=== PATIENT | female | born 1995 | race American Indian/Alaskan Native ===

== ENCOUNTER 2018-09-08 08:31 | Inpatient (IN) | payer MEDICAID ==
[2018-09-08] MEDS ORDERED: BRETHINE IVP PRN (09:36)
[2018-09-08] MEDS ORDERED: STADOL IV PRN (09:36)
[2018-09-08] MEDS ORDERED: BRETHINE SUB-Q PRN (09:36)
[2018-09-08] MEDS ORDERED: SUBLIMAZE IV PRN (09:36)
[2018-09-08] MEDS ORDERED: PITOCin/NS 30 UNIT/500ML 30 UNITS/500 ML BAG IV SCH ×2 (10:00)
[2018-09-08] MEDS ORDERED: PITOCin/NS 20 UNIT/1000ML DRIP 20 UNITS/1,000 ML BAG IV SCH (10:00)
[2018-09-08 10:14] LABS: Hematocrit 29.2 % (30.3-42.9); Hemoglobin 9.3 gm/dl (10.1-14.3); Mean Corpuscular HGB Conc 32 % (30-34); Platelet Count 277 K/mm3 (140-440); Red Blood Count 4.18 M/mm3 (3.65-5.03); Red Cell Distribution Width 18.5 % (13.2-15.2)
[2018-09-08 10:15] LABS: Mean Corpuscular Volume 70 fl (79-97)
[2018-09-08] MEDS: LACTATED RINGERS 1,000 ML IV SCH ×2 (10:19→19:16)
[2018-09-08] MEDS ORDERED: XYLOCAINE 2% INFILTRATI ONE (11:00)
--- NOTE | 2018-09-08 13:12 | History and Physical Report ---
History of Present Illness Date of examination: 09/08/18 Date of admission: 09/08/18 08:31 Chief complaint: Scheduled IOL post dates History of present illness: Menstrual History Regularity: regular Menses every: 28 days Duration: 7 LMP: 11/25/2017 LMP reliability: definite LMP character: normal test type: urine test Date: 01/30/2018 BC at conception: none Planned ? no EDC Calculations LMP: 09/01/2018 EDC Confirmation: 09/01/2018 Gestational Age: 9 3/7 weeks Past History : 1 Past Medical History: Negative Past Medical History Past Surgical History: Negative Past Surgical History Social History: Patient is single Smoking History: Patient has never smoked. 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 Infection History Hx of STD: none HIV Risk Eval: no Varicella/Chicken Pox Status: Unknown TB Risk: no Genetic History Congenital Heart Defect: Mom: no Dad: no Cliff Disease: Mom: no Dad: no Thalassemia Mom: no Dad: no Neural Tube Defect Mom: no Dad: no Down's Syndrome Mom: yes Dad: no Comments: Maternal aunt Richi-Sachs Mom: no Dad: no Sickle Cell Disease/Trait Mom: no Dad: no Hemophilia Mom: no Dad: no Muscular Dystrophy Mom: no Dad: no Cystic Fibrosis Mom: no Dad: no [place] Chorea Mom: no Dad: no Mental Retardation Mom: no Dad: no Fragile X Mom: no Dad: no Other Genetic/Chromosomal Disorder Mom: no Dad: no Child w/other defect Mom: no Dad: no Enviromental Exposures Enviromental Exposures Reviewed Xray Exposure: no Medication, drug, or alcohol use since LMP: no Chemical/Other Exposure: no Exposure to Cat Liter: no Hx of Parvovirus (Fifth Disease): no 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 Medications (reviewed today): None Current Allergies (reviewed today): No known allergies Past History Past Medical History: other (see HPI) Past Surgical History: other (see HPI) 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) Family/Genetic History: other (see HPI) Social history: other (see HPI) - Obstetrical History Expected Date of Delivery: 09/01/18 Actual Gestation: 41 Week(s) 0 Day(s) : 1 Para: 0 Medications and Allergies Allergies Allergy/AdvReac Type Severity Reaction Status Date / Time No Known Allergies Allergy Unverified 09/08/18 09:36 Active Meds: Active Medications Butorphanol Tartrate (Stadol) 2 mg IV Q2H PRN PRN Reason: Pain , Severe (7-10) Ephedrine Sulfate (Ephedrine Sulfate) 10 mg IV Q2M PRN PRN Reason: Hypotension Fentanyl (Sublimaze) 100 mcg IV Q2H PRN PRN Reason: Labor Pain Oxytocin/Sodium Chloride (Pitocin/Ns 20 Unit/1000ml Drip) 20 units in 1,000 mls @ 125 mls/hr IV DIRECT TERRI Oxytocin/Sodium Chloride (Pitocin/Ns 30 Unit/500ml) 30 units in 500 mls @ 1 mls/hr IV TITR TERRI; Protocol Oxytocin/Sodium Chloride (Pitocin/Ns 30 Unit/500ml) 30 units in 500 mls @ 4 mls/hr IV TITR TERRI; Protocol Last Titration: 09/08/18 10:45 Dose: 8 mls/hr, 8 mls/hr Documented by: Lactated Ringer's (Lactated Ringers) 1,000 mls @ 125 mls/hr IV DIRECT TERRI Last Admin: 09/08/18 10:19 Dose: 125 mls/hr Documented by: Mineral Oil (Mineral Oil) 30 ml PO QHS PRN PRN Reason: Constipation Terbutaline Sulfate (Brethine) 0.25 mg SUB-Q ONCE PRN PRN Reason: Hyperstimulation/Hypertonicity Stop: 09/08/18 20:00 Terbutaline Sulfate (Brethine) 0.25 mg IVP ONCE PRN PRN Reason: Hyperstimulation/Hypertonicity Stop: 09/08/18 20:00 Review of Systems All systems: negative Genitourinary: contractions - Vital Signs Vital signs: Vital Signs Pulse BP 96 H 128/80 09/08/18 08:56 09/08/18 08:56 Temp Pulse Resp BP Pulse Ox 98.3 F 90 16 126/72 98 09/08/18 09:52 09/08/18 13:07 09/08/18 09:52 09/08/18 10:54 09/08/18 13:07 - Physical Exam Breasts: Positive: normal Cardiovascular: Regular rate, Normal S1, Normal S2 Lungs: Positive: Clear to auscultation, Normal air movement Abdomen: Positive: normal appearance, soft, normal bowel sounds. Negative: distention, tenderness Genitourinary (Female): Positive: normal external genitalia, normal perenium Vulva: both: normal Vagina: Positive: normal moisture. Negative: discharge Cervix: Negative: lesion, discharge Uterus: Positive: normal size, normal contour Adnexa: both: normal Anus/Rectum: Positive: normal perianal skin. Negative: rectal mass, hemorrhoids Extremities: Deep Tendon Reflex Grade: Normal +2 - Obstetrical FHR: auscultation normal Uterine Contraction Monitor Mode: External Cervical Dilatation: 2 Cervical Effacement Percentage: 60 station: -2 Uterine Contraction Pattern: Irregular Uterine Tone Measurement Phase: Contraction Uterine Contraction Intensity: Mild Results Result Diagrams: 09/08/18 09:15 Abnormal lab results 09/08/18 Range/Units 09:15 Hgb 9.3 L (10.1-14.3) gm/dl Hct 29.2 L (30.3-42.9) % MCV 70 L (79-97) fl MCH 22 L (28-32) pg RDW 18.5 H (13.2-15.2) % All other labs normal. Assessment and Plan 23 y.o. IUP at 41w0d admitted for scheduled IOL for postdates. Routine admission orders and pitocin order in EMR. GBS is negative. DWP plans for induction, possibility of cervdil this evening if no significant cervical change is made today. Discussed with patient occasional late decelerations noted in heart tracing earlier, now corrected and category 1. Patient understands causes and interventions to correct late decelerations, and possibility of need for section if signs of distress continue. Questions encouraged and answered. Patient reports being comfortable at this time. She reports feeling occasional contractions, but they are not painful. Patient desires epidural for pain management. SVE is 2/60/-2, vertex, IBOW. Will continue to monitor, Anticipate .
--- NOTE | 2018-09-08 18:57 | Progress Note ---
Assessment and Plan - Patient Problems (1) 41 weeks gestation of Current Visit: Yes Status: Acute Plan to address problem: -cont IOL with pitocin now in active labor -prepare for epidural -plan for AROM with epidural placement with placement of internal monitors -currently anticipate vaginal delivery. Subjective - Subjective Date of service: 09/08/18 Principal diagnosis: IUP at 41 weeks here for post dates iol Interval history: Pt c/o pain. examined and cx 70/-1 with some bloody show. Will obtain epidural at this time as pt desires it and proceed with IOL. Pitocin currently at 12mu. Pt did have variable decels that seemed to be positional. I d/w need for operative delivery if tracing remains nonreassuring. Currently tracing is without decelerations. Questions regarding labor augmentation such as AROM which I d/w pt were addressed and answered to pt and her mother. Patient reports: vaginal bleeding, movement normal, contractions, no loss of fluid Objective - Vital Signs Vital Signs: Vital Signs - 12hr 09/08/18 09/08/18 09/08/18 08:56 09:00 09:52 Temperature 98.3 F Pulse Rate 96 H 107 H Respiratory 16 Rate Blood Pressure 128/80 110/68 O2 Sat by Pulse Oximetry 09/08/18 09/08/18 09/08/18 10:54 12:57 13:02 Temperature Pulse Rate 71 81 86 Respiratory Rate Blood Pressure 126/72 O2 Sat by Pulse 100 99 Oximetry 09/08/18 09/08/18 09/08/18 13:07 13:12 13:22 Temperature Pulse Rate 90 88 95 H Respiratory Rate Blood Pressure O2 Sat by Pulse 98 100 98 Oximetry 09/08/18 09/08/18 09/08/18 13:27 13:32 13:37 Temperature Pulse Rate 87 78 79 Respiratory Rate Blood Pressure O2 Sat by Pulse 96 96 96 Oximetry 09/08/18 09/08/18 09/08/18 13:42 13:47 13:52 Temperature Pulse Rate 81 77 83 Respiratory Rate Blood Pressure O2 Sat by Pulse 97 97 98 Oximetry 09/08/18 09/08/18 09/08/18 13:57 14:02 14:07 Temperature Pulse Rate 81 75 74 Respiratory Rate Blood Pressure O2 Sat by Pulse 98 99 99 Oximetry 09/08/18 09/08/18 09/08/18 14:09 14:12 14:17 Temperature Pulse Rate 93 H 75 72 Respiratory Rate Blood Pressure O2 Sat by Pulse 84 98 98 Oximetry 09/08/18 09/08/18 09/08/18 14:22 14:27 14:32 Temperature Pulse Rate 69 75 70 Respiratory Rate Blood Pressure O2 Sat by Pulse 98 99 98 Oximetry 09/08/18 09/08/18 09/08/18 14:34 14:37 14:42 Temperature Pulse Rate 76 77 81 Respiratory Rate Blood Pressure 110/59 O2 Sat by Pulse 98 98 Oximetry 09/08/18 09/08/18 09/08/18 14:47 14:59 15:01 Temperature Pulse Rate 81 78 76 Respiratory Rate Blood Pressure 127/74 O2 Sat by Pulse 98 100 Oximetry 09/08/18 09/08/18 09/08/18 15:04 15:09 15:14 Temperature Pulse Rate 86 83 77 Respiratory Rate Blood Pressure O2 Sat by Pulse 100 100 100 Oximetry 09/08/18 09/08/18 09/08/18 15:19 15:24 15:29 Temperature Pulse Rate 84 100 H 93 H Respiratory Rate Blood Pressure O2 Sat by Pulse 100 100 100 Oximetry 09/08/18 09/08/18 09/08/18 15:32 15:34 15:39 Temperature Pulse Rate 88 98 H 82 Respiratory Rate Blood Pressure 113/76 O2 Sat by Pulse 100 100 Oximetry 09/08/18 09/08/18 09/08/18 15:44 16:00 16:06 Temperature 97.9 F Pulse Rate 86 90 Respiratory Rate Blood Pressure O2 Sat by Pulse 100 100 Oximetry 09/08/18 09/08/18 09/08/18 16:07 16:12 16:17 Temperature Pulse Rate 69 81 94 H Respiratory Rate Blood Pressure 149/63 O2 Sat by Pulse 89 98 100 Oximetry 09/08/18 09/08/18 09/08/18 16:22 16:27 16:33 Temperature Pulse Rate 79 104 H 84 Respiratory Rate Blood Pressure 136/76 O2 Sat by Pulse 98 100 100 Oximetry 09/08/18 09/08/18 09/08/18 16:35 16:38 16:43 Temperature Pulse Rate 91 H 82 Respiratory 18 Rate Blood Pressure O2 Sat by Pulse 99 97 Oximetry 09/08/18 09/08/18 09/08/18 16:48 16:53 16:58 Temperature Pulse Rate 90 78 79 Respiratory Rate Blood Pressure O2 Sat by Pulse 96 97 96 Oximetry 09/08/18 09/08/18 09/08/18 17:03 17:08 17:13 Temperature Pulse Rate 94 H 85 81 Respiratory Rate Blood Pressure 122/83 O2 Sat by Pulse 96 96 96 Oximetry 09/08/18 09/08/18 09/08/18 17:18 17:23 17:28 Temperature Pulse Rate 79 84 82 Respiratory Rate Blood Pressure O2 Sat by Pulse 97 96 96 Oximetry 09/08/18 09/08/18 09/08/18 17:32 17:33 17:38 Temperature Pulse Rate 88 90 83 Respiratory Rate Blood Pressure 132/63 O2 Sat by Pulse 98 100 Oximetry 09/08/18 09/08/18 09/08/18 17:43 17:48 17:53 Temperature Pulse Rate 78 84 84 Respiratory Rate Blood Pressure O2 Sat by Pulse 100 97 98 Oximetry 09/08/18 09/08/18 09/08/18 17:58 18:02 18:03 Temperature Pulse Rate 80 81 89 Respiratory Rate Blood Pressure 135/70 O2 Sat by Pulse 100 99 Oximetry 09/08/18 09/08/18 09/08/18 18:08 18:16 18:32 Temperature Pulse Rate 79 87 79 Respiratory Rate Blood Pressure 132/62 O2 Sat by Pulse 100 100 100 Oximetry 09/08/18 09/08/18 09/08/18 18:37 18:42 18:47 Temperature Pulse Rate 81 85 85 Respiratory Rate Blood Pressure O2 Sat by Pulse 100 100 100 Oximetry - Exam FHR: category 2 (resolves with postion change) Uterine Contraction Monitor Mode: Palpation Cervical Dilatation: 4.5 Cervical Effacement Percentage: 70 station: -1 Uterine Contraction Pattern: Regular Uterine Tone Measurement Phase: Resting Uterine Contraction Intensity: Moderate Extremities: edema (1+ edema) - Labs Labs: Abnormal Labs 09/08/18 09:15 Hgb 9.3 L Hct 29.2 L MCV 70 L MCH 22 L RDW 18.5 H Laboratory Results - last 24 hr 09/08/18 09/08/18 09/08/18 09:15 09:15 09:15 WBC 9.2 RBC 4.18 Hgb 9.3 L Hct 29.2 L MCV 70 L MCH 22 L MCHC 32 RDW 18.5 H Plt Count 277 RPR Nonreactive Blood Type O POSITIVE Antibody Screen Negative
--- NOTE | 2018-09-08 19:25 | Anesthesia Consultation ---
Anesthesia Consult and Med Hx Date of service: 09/08/18 - Airway Anesthetic Teeth Evaluation: Good ROM Head & Neck: Adequate Mental/Hyoid Distance: Adequate Mallampati Class: Class II - Pulmonary Exam CTA: Yes - Cardiac Exam Cardiac Exam: RRR - Pre-Operative Health Status ASA Pre-Surgery Classification: ASA2 Proposed Anesthetic Plan: Epidural - Pulmonary Hx Asthma: No COPD: No Hx Pneumonia: No - Cardiovascular System Hx Hypertension: No - Central Nervous System Hx Seizures: No Hx Psychiatric Problems: No - Endocrine Hx Renal Disease: No Hx End Stage Renal Disease: No Hx Hypothyroidism: No Hx Hyperthyroidism: No - Hematic Hx Anemia: No Hx Sickle Cell Disease: No - Other Systems Hx Alcohol Use: No
[2018-09-08] MEDS ORDERED: NARCAN 2 MG/2 ML IV PRN (19:26)
[2018-09-08] MEDS ORDERED: MARCAINE 0.25% INFILTRATI ONE (19:32)
--- NOTE | 2018-09-08 19:59 | Progress Note ---
Assessment and Plan - Patient Problems (1) 41 weeks gestation of Current Visit: Yes Status: Acute Subjective - Subjective Principal diagnosis: IUP at 41 weeks here for post dates iol Interval history: Pt c/o pain. examined and cx /-1 with some bloody show. Will obtain epidural at this time as pt desires it and proceed with IOL. Pitocin currently at 12mu. Pt did have variable decels that seemed to be positional. I d/w need for operative delivery if tracing remains nonreassuring. Currently tracing is without decelerations. Questions regarding labor augmentation such as AROM which I d/w pt were addressed and answered to pt and her mother. Patient reports: vaginal bleeding, movement normal, contractions, no loss of fluid Objective - Vital Signs Vital Signs: Vital Signs - 12hr 09/08/18 09/08/18 09/08/18 08:56 09:00 09:52 Temperature 98.3 F Pulse Rate 96 H 107 H Respiratory 16 Rate Blood Pressure 128/80 110/68 O2 Sat by Pulse Oximetry 09/08/18 09/08/18 09/08/18 10:54 12:57 13:02 Temperature Pulse Rate 71 81 86 Respiratory Rate Blood Pressure 126/72 O2 Sat by Pulse 100 99 Oximetry 09/08/18 09/08/18 09/08/18 13:07 13:12 13:22 Temperature Pulse Rate 90 88 95 H Respiratory Rate Blood Pressure O2 Sat by Pulse 98 100 98 Oximetry 09/08/18 09/08/18 09/08/18 13:27 13:32 13:37 Temperature Pulse Rate 87 78 79 Respiratory Rate Blood Pressure O2 Sat by Pulse 96 96 96 Oximetry 09/08/18 09/08/18 09/08/18 13:42 13:47 13:52 Temperature Pulse Rate 81 77 83 Respiratory Rate Blood Pressure O2 Sat by Pulse 97 97 98 Oximetry 09/08/18 09/08/18 09/08/18 13:57 14:02 14:07 Temperature Pulse Rate 81 75 74 Respiratory Rate Blood Pressure O2 Sat by Pulse 98 99 99 Oximetry 09/08/18 09/08/18 09/08/18 14:09 14:12 14:17 Temperature Pulse Rate 93 H 75 72 Respiratory Rate Blood Pressure O2 Sat by Pulse 84 98 98 Oximetry 09/08/18 09/08/18 09/08/18 14:22 14:27 14:32 Temperature Pulse Rate 69 75 70 Respiratory Rate Blood Pressure O2 Sat by Pulse 98 99 98 Oximetry 09/08/18 09/08/18 09/08/18 14:34 14:37 14:42 Temperature Pulse Rate 76 77 81 Respiratory Rate Blood Pressure 110/59 O2 Sat by Pulse 98 98 Oximetry 09/08/18 09/08/18 09/08/18 14:47 14:59 15:01 Temperature Pulse Rate 81 78 76 Respiratory Rate Blood Pressure 127/74 O2 Sat by Pulse 98 100 Oximetry 09/08/18 09/08/18 09/08/18 15:04 15:09 15:14 Temperature Pulse Rate 86 83 77 Respiratory Rate Blood Pressure O2 Sat by Pulse 100 100 100 Oximetry 09/08/18 09/08/18 09/08/18 15:19 15:24 15:29 Temperature Pulse Rate 84 100 H 93 H Respiratory Rate Blood Pressure O2 Sat by Pulse 100 100 100 Oximetry 09/08/18 09/08/18 09/08/18 15:32 15:34 15:39 Temperature Pulse Rate 88 98 H 82 Respiratory Rate Blood Pressure 113/76 O2 Sat by Pulse 100 100 Oximetry 09/08/18 09/08/18 09/08/18 15:44 16:00 16:06 Temperature 97.9 F Pulse Rate 86 90 Respiratory Rate Blood Pressure O2 Sat by Pulse 100 100 Oximetry 09/08/18 09/08/18 09/08/18 16:07 16:12 16:17 Temperature Pulse Rate 69 81 94 H Respiratory Rate Blood Pressure 149/63 O2 Sat by Pulse 89 98 100 Oximetry 09/08/18 09/08/18 09/08/18 16:22 16:27 16:33 Temperature Pulse Rate 79 104 H 84 Respiratory Rate Blood Pressure 136/76 O2 Sat by Pulse 98 100 100 Oximetry 09/08/18 09/08/18 09/08/18 16:35 16:38 16:43 Temperature Pulse Rate 91 H 82 Respiratory 18 Rate Blood Pressure O2 Sat by Pulse 99 97 Oximetry 09/08/18 09/08/18 09/08/18 16:48 16:53 16:58 Temperature Pulse Rate 90 78 79 Respiratory Rate Blood Pressure O2 Sat by Pulse 96 97 96 Oximetry 09/08/18 09/08/18 09/08/18 17:03 17:08 17:13 Temperature Pulse Rate 94 H 85 81 Respiratory Rate Blood Pressure 122/83 O2 Sat by Pulse 96 96 96 Oximetry 09/08/18 09/08/18 09/08/18 17:18 17:23 17:28 Temperature Pulse Rate 79 84 82 Respiratory Rate Blood Pressure O2 Sat by Pulse 97 96 96 Oximetry 09/08/18 09/08/18 09/08/18 17:32 17:33 17:38 Temperature Pulse Rate 88 90 83 Respiratory Rate Blood Pressure 132/63 O2 Sat by Pulse 98 100 Oximetry 09/08/18 09/08/18 09/08/18 17:43 17:48 17:53 Temperature Pulse Rate 78 84 84 Respiratory Rate Blood Pressure O2 Sat by Pulse 100 97 98 Oximetry 09/08/18 09/08/18 09/08/18 17:58 18:02 18:03 Temperature Pulse Rate 80 81 89 Respiratory Rate Blood Pressure 135/70 O2 Sat by Pulse 100 99 Oximetry 09/08/18 09/08/18 09/08/18 18:08 18:16 18:32 Temperature Pulse Rate 79 87 79 Respiratory Rate Blood Pressure 132/62 O2 Sat by Pulse 100 100 100 Oximetry 09/08/18 09/08/18 09/08/18 18:37 18:42 18:47 Temperature Pulse Rate 81 85 85 Respiratory Rate Blood Pressure O2 Sat by Pulse 100 100 100 Oximetry 09/08/18 09/08/18 09/08/18 18:52 18:57 19:02 Temperature Pulse Rate 80 83 Respiratory Rate Blood Pressure O2 Sat by Pulse 100 100 90 Oximetry 09/08/18 09/08/18 09/08/18 19:03 19:07 19:09 Temperature Pulse Rate 77 80 86 Respiratory Rate Blood Pressure 139/67 O2 Sat by Pulse 88 100 85 Oximetry 09/08/18 09/08/18 09/08/18 19:23 19:28 19:33 Temperature Pulse Rate 84 81 78 Respiratory Rate Blood Pressure 155/78 O2 Sat by Pulse 98 97 93 Oximetry 09/08/18 09/08/18 09/08/18 19:38 19:41 19:43 Temperature Pulse Rate 88 72 91 H Respiratory Rate Blood Pressure O2 Sat by Pulse 97 81 L 99 Oximetry 09/08/18 09/08/18 09/08/18 19:47 19:48 19:49 Temperature Pulse Rate 91 H 82 82 Respiratory Rate Blood Pressure 143/68 143/68 O2 Sat by Pulse 100 Oximetry 09/08/18 09/08/18 09/08/18 19:51 19:53 19:54 Temperature Pulse Rate 96 H 85 85 Respiratory Rate Blood Pressure 143/72 O2 Sat by Pulse 87 78 L Oximetry 09/08/18 19:55 Temperature Pulse Rate 77 Respiratory Rate Blood Pressure 126/72 O2 Sat by Pulse Oximetry - Exam Cervical Dilatation: 4.5 Cervical Effacement Percentage: 70 station: -1 - Labs Labs: Abnormal Labs 09/08/18 09:15 Hgb 9.3 L Hct 29.2 L MCV 70 L MCH 22 L RDW 18.5 H Laboratory Results - last 24 hr 09/08/18 09/08/18 09/08/18 09:15 09:15 09:15 WBC 9.2 RBC 4.18 Hgb 9.3 L Hct 29.2 L MCV 70 L MCH 22 L MCHC 32 RDW 18.5 H Plt Count 277 RPR Nonreactive Blood Type O POSITIVE Antibody Screen Negative
[2018-09-08] MEDS ORDERED: fentaNYL-BUPIV 2 MCG/ML-0.125% 200 MCG/100 ML BAG EPIDURAL SCH (20:00)
--- NOTE | 2018-09-08 20:47 | Progress Note ---
Assessment and Plan - Patient Problems (1) 41 weeks gestation of Current Visit: Yes Status: Acute Plan to address problem: S/p pitocin IOL now in active labor with pitocin now at 12mu. -closely monitor -still has late decels that correct with position change. Will add O2 at this time also Subjective - Subjective Date of service: 09/08/18 Principal diagnosis: IUP at 41 weeks here for post dates iol Interval history: Pt s/p epidural and is comfortable. AROM done with clear fluid noted. ISE/IUPC placed at this time w/o difficulty. Currently with regular contractions. Consent given for placement of the devices. Pt tolerated the exam well. Patient reports: vaginal bleeding, movement normal, contractions, no loss of fluid Objective - Vital Signs Vital Signs: Vital Signs - 12hr 09/08/18 09/08/18 09/08/18 08:56 09:00 09:52 Temperature 98.3 F Pulse Rate 96 H 107 H Respiratory 16 Rate Blood Pressure 128/80 110/68 O2 Sat by Pulse Oximetry 09/08/18 09/08/18 09/08/18 10:54 12:57 13:02 Temperature Pulse Rate 71 81 86 Respiratory Rate Blood Pressure 126/72 O2 Sat by Pulse 100 99 Oximetry 09/08/18 09/08/18 09/08/18 13:07 13:12 13:22 Temperature Pulse Rate 90 88 95 H Respiratory Rate Blood Pressure O2 Sat by Pulse 98 100 98 Oximetry 09/08/18 09/08/18 09/08/18 13:27 13:32 13:37 Temperature Pulse Rate 87 78 79 Respiratory Rate Blood Pressure O2 Sat by Pulse 96 96 96 Oximetry 09/08/18 09/08/18 09/08/18 13:42 13:47 13:52 Temperature Pulse Rate 81 77 83 Respiratory Rate Blood Pressure O2 Sat by Pulse 97 97 98 Oximetry 09/08/18 09/08/18 09/08/18 13:57 14:02 14:07 Temperature Pulse Rate 81 75 74 Respiratory Rate Blood Pressure O2 Sat by Pulse 98 99 99 Oximetry 09/08/18 09/08/18 09/08/18 14:09 14:12 14:17 Temperature Pulse Rate 93 H 75 72 Respiratory Rate Blood Pressure O2 Sat by Pulse 84 98 98 Oximetry 09/08/18 09/08/18 09/08/18 14:22 14:27 14:32 Temperature Pulse Rate 69 75 70 Respiratory Rate Blood Pressure O2 Sat by Pulse 98 99 98 Oximetry 09/08/18 09/08/18 09/08/18 14:34 14:37 14:42 Temperature Pulse Rate 76 77 81 Respiratory Rate Blood Pressure 110/59 O2 Sat by Pulse 98 98 Oximetry 09/08/18 09/08/18 09/08/18 14:47 14:59 15:01 Temperature Pulse Rate 81 78 76 Respiratory Rate Blood Pressure 127/74 O2 Sat by Pulse 98 100 Oximetry 09/08/18 09/08/18 09/08/18 15:04 15:09 15:14 Temperature Pulse Rate 86 83 77 Respiratory Rate Blood Pressure O2 Sat by Pulse 100 100 100 Oximetry 09/08/18 09/08/18 09/08/18 15:19 15:24 15:29 Temperature Pulse Rate 84 100 H 93 H Respiratory Rate Blood Pressure O2 Sat by Pulse 100 100 100 Oximetry 09/08/18 09/08/18 09/08/18 15:32 15:34 15:39 Temperature Pulse Rate 88 98 H 82 Respiratory Rate Blood Pressure 113/76 O2 Sat by Pulse 100 100 Oximetry 09/08/18 09/08/18 09/08/18 15:44 16:00 16:06 Temperature 97.9 F Pulse Rate 86 90 Respiratory Rate Blood Pressure O2 Sat by Pulse 100 100 Oximetry 09/08/18 09/08/18 09/08/18 16:07 16:12 16:17 Temperature Pulse Rate 69 81 94 H Respiratory Rate Blood Pressure 149/63 O2 Sat by Pulse 89 98 100 Oximetry 09/08/18 09/08/18 09/08/18 16:22 16:27 16:33 Temperature Pulse Rate 79 104 H 84 Respiratory Rate Blood Pressure 136/76 O2 Sat by Pulse 98 100 100 Oximetry 09/08/18 09/08/18 09/08/18 16:35 16:38 16:43 Temperature Pulse Rate 91 H 82 Respiratory 18 Rate Blood Pressure O2 Sat by Pulse 99 97 Oximetry 09/08/18 09/08/18 09/08/18 16:48 16:53 16:58 Temperature Pulse Rate 90 78 79 Respiratory Rate Blood Pressure O2 Sat by Pulse 96 97 96 Oximetry 09/08/18 09/08/18 09/08/18 17:03 17:08 17:13 Temperature Pulse Rate 94 H 85 81 Respiratory Rate Blood Pressure 122/83 O2 Sat by Pulse 96 96 96 Oximetry 09/08/18 09/08/18 09/08/18 17:18 17:23 17:28 Temperature Pulse Rate 79 84 82 Respiratory Rate Blood Pressure O2 Sat by Pulse 97 96 96 Oximetry 09/08/18 09/08/18 09/08/18 17:32 17:33 17:38 Temperature Pulse Rate 88 90 83 Respiratory Rate Blood Pressure 132/63 O2 Sat by Pulse 98 100 Oximetry 09/08/18 09/08/18 09/08/18 17:43 17:48 17:53 Temperature Pulse Rate 78 84 84 Respiratory Rate Blood Pressure O2 Sat by Pulse 100 97 98 Oximetry 09/08/18 09/08/18 09/08/18 17:58 18:02 18:03 Temperature Pulse Rate 80 81 89 Respiratory Rate Blood Pressure 135/70 O2 Sat by Pulse 100 99 Oximetry 09/08/18 09/08/18 09/08/18 18:08 18:16 18:32 Temperature Pulse Rate 79 87 79 Respiratory Rate Blood Pressure 132/62 O2 Sat by Pulse 100 100 100 Oximetry 09/08/18 09/08/18 09/08/18 18:37 18:42 18:47 Temperature Pulse Rate 81 85 85 Respiratory Rate Blood Pressure O2 Sat by Pulse 100 100 100 Oximetry 09/08/18 09/08/18 09/08/18 18:52 18:57 19:02 Temperature Pulse Rate 80 83 Respiratory Rate Blood Pressure O2 Sat by Pulse 100 100 90 Oximetry 09/08/18 09/08/18 09/08/18 19:03 19:07 19:09 Temperature Pulse Rate 77 80 86 Respiratory Rate Blood Pressure 139/67 O2 Sat by Pulse 88 100 85 Oximetry 09/08/18 09/08/18 09/08/18 19:23 19:28 19:33 Temperature Pulse Rate 84 81 78 Respiratory Rate Blood Pressure 155/78 O2 Sat by Pulse 98 97 93 Oximetry 09/08/18 09/08/18 09/08/18 19:38 19:41 19:43 Temperature Pulse Rate 88 72 91 H Respiratory Rate Blood Pressure O2 Sat by Pulse 97 81 L 99 Oximetry 09/08/18 09/08/18 09/08/18 19:47 19:48 19:49 Temperature Pulse Rate 91 H 82 82 Respiratory Rate Blood Pressure 143/68 143/68 O2 Sat by Pulse 100 Oximetry 09/08/18 09/08/18 09/08/18 19:51 19:53 19:54 Temperature Pulse Rate 96 H 85 85 Respiratory Rate Blood Pressure 143/72 O2 Sat by Pulse 87 78 L Oximetry 09/08/18 09/08/18 09/08/18 19:55 19:57 19:58 Temperature Pulse Rate 77 77 86 Respiratory Rate Blood Pressure 126/72 129/65 O2 Sat by Pulse 70 L Oximetry 09/08/18 09/08/18 09/08/18 19:59 20:01 20:03 Temperature Pulse Rate 90 85 86 Respiratory Rate Blood Pressure 126/57 133/63 136/65 O2 Sat by Pulse 99 Oximetry 09/08/18 09/08/18 09/08/18 20:05 20:07 20:08 Temperature Pulse Rate 81 82 97 H Respiratory Rate Blood Pressure 135/64 134/61 O2 Sat by Pulse 100 Oximetry 09/08/18 09/08/18 09/08/18 20:09 20:11 20:13 Temperature Pulse Rate 86 88 93 H Respiratory Rate Blood Pressure 135/62 142/65 141/63 O2 Sat by Pulse 97 Oximetry 09/08/18 09/08/18 09/08/18 20:15 20:17 20:18 Temperature Pulse Rate 92 H 89 102 H Respiratory Rate Blood Pressure 146/65 149/65 O2 Sat by Pulse 99 Oximetry 09/08/18 09/08/18 09/08/18 20:19 20:21 20:23 Temperature Pulse Rate 84 81 96 H Respiratory Rate Blood Pressure 148/66 149/57 148/65 O2 Sat by Pulse 90 Oximetry 09/08/18 09/08/18 09/08/18 20:25 20:27 20:28 Temperature Pulse Rate 87 78 83 Respiratory Rate Blood Pressure 151/67 141/63 O2 Sat by Pulse 98 Oximetry 09/08/18 09/08/18 09/08/18 20:29 20:31 20:33 Temperature Pulse Rate 73 89 86 Respiratory Rate Blood Pressure 144/63 142/69 O2 Sat by Pulse 79 L Oximetry 09/08/18 09/08/18 09/08/18 20:34 20:35 20:37 Temperature Pulse Rate 77 94 H 91 H Respiratory Rate Blood Pressure 145/64 118/63 121/63 O2 Sat by Pulse Oximetry 09/08/18 09/08/18 09/08/18 20:38 20:39 20:42 Temperature Pulse Rate 99 H 105 H 91 H Respiratory Rate Blood Pressure 123/65 147/63 O2 Sat by Pulse 100 Oximetry 09/08/18 20:43 Temperature Pulse Rate 98 H Respiratory Rate Blood Pressure 137/62 O2 Sat by Pulse Oximetry - Exam FHR: category 2 Cervical Dilatation: 5 Cervical Effacement Percentage: 80 station: 0 Uterine Contraction Pattern: Irregular Uterine Tone Measurement Phase: Resting Uterine Contraction Intensity: Moderate Deep Tendon Reflex Grade: Normal +2 - Labs Labs: Abnormal Labs 09/08/18 09:15 Hgb 9.3 L Hct 29.2 L MCV 70 L MCH 22 L RDW 18.5 H Laboratory Results - last 24 hr 09/08/18 09/08/18 09/08/18 09:15 09:15 09:15 WBC 9.2 RBC 4.18 Hgb 9.3 L Hct 29.2 L MCV 70 L MCH 22 L MCHC 32 RDW 18.5 H Plt Count 277 RPR Nonreactive Blood Type O POSITIVE Antibody Screen Negative
[2018-09-08] MEDS ORDERED: MINERAL OIL PO PRN (22:00)
--- NOTE | 2018-09-08 23:06 | Progress Note ---
Assessment and Plan - Patient Problems (1) 41 weeks gestation of Current Visit: Yes Status: Acute Plan to address problem: -labor progressing without pitocin. Will cont to hold at this time. No s/sx of infection -anticipate if remains stable and labor continues to progress. Subjective - Subjective Date of service: 09/08/18 Principal diagnosis: IUP at 41 weeks here for post dates iol Interval history: Pt s/p epidural and is comfortable. Cat I tracing at this time. Pitocin remains off. Pt is still having spontaneous contractions which the baby is tolerating well at this time. Patient reports: vaginal bleeding, movement normal, contractions, no loss of fluid Objective - Vital Signs Vital Signs: Vital Signs - 12hr 09/08/18 09/08/18 09/08/18 12:57 13:02 13:07 Temperature Pulse Rate 81 86 90 Respiratory Rate Blood Pressure O2 Sat by Pulse 100 99 98 Oximetry 09/08/18 09/08/18 09/08/18 13:12 13:22 13:27 Temperature Pulse Rate 88 95 H 87 Respiratory Rate Blood Pressure O2 Sat by Pulse 100 98 96 Oximetry 09/08/18 09/08/18 09/08/18 13:32 13:37 13:42 Temperature Pulse Rate 78 79 81 Respiratory Rate Blood Pressure O2 Sat by Pulse 96 96 97 Oximetry 09/08/18 09/08/18 09/08/18 13:47 13:52 13:57 Temperature Pulse Rate 77 83 81 Respiratory Rate Blood Pressure O2 Sat by Pulse 97 98 98 Oximetry 09/08/18 09/08/18 09/08/18 14:02 14:07 14:09 Temperature Pulse Rate 75 74 93 H Respiratory Rate Blood Pressure O2 Sat by Pulse 99 99 84 Oximetry 09/08/18 09/08/18 09/08/18 14:12 14:17 14:22 Temperature Pulse Rate 75 72 69 Respiratory Rate Blood Pressure O2 Sat by Pulse 98 98 98 Oximetry 09/08/18 09/08/18 09/08/18 14:27 14:32 14:34 Temperature Pulse Rate 75 70 76 Respiratory Rate Blood Pressure 110/59 O2 Sat by Pulse 99 98 Oximetry 09/08/18 09/08/18 09/08/18 14:37 14:42 14:47 Temperature Pulse Rate 77 81 81 Respiratory Rate Blood Pressure O2 Sat by Pulse 98 98 98 Oximetry 09/08/18 09/08/18 09/08/18 14:59 15:01 15:04 Temperature Pulse Rate 78 76 86 Respiratory Rate Blood Pressure 127/74 O2 Sat by Pulse 100 100 Oximetry 09/08/18 09/08/18 09/08/18 15:09 15:14 15:19 Temperature Pulse Rate 83 77 84 Respiratory Rate Blood Pressure O2 Sat by Pulse 100 100 100 Oximetry 09/08/18 09/08/18 09/08/18 15:24 15:29 15:32 Temperature Pulse Rate 100 H 93 H 88 Respiratory Rate Blood Pressure 113/76 O2 Sat by Pulse 100 100 Oximetry 09/08/18 09/08/18 09/08/18 15:34 15:39 15:44 Temperature Pulse Rate 98 H 82 86 Respiratory Rate Blood Pressure O2 Sat by Pulse 100 100 100 Oximetry 09/08/18 09/08/18 09/08/18 16:00 16:06 16:07 Temperature 97.9 F Pulse Rate 90 69 Respiratory Rate Blood Pressure O2 Sat by Pulse 100 89 Oximetry 09/08/18 09/08/18 09/08/18 16:12 16:17 16:22 Temperature Pulse Rate 81 94 H 79 Respiratory Rate Blood Pressure 149/63 O2 Sat by Pulse 98 100 98 Oximetry 09/08/18 09/08/18 09/08/18 16:27 16:33 16:35 Temperature Pulse Rate 104 H 84 Respiratory 18 Rate Blood Pressure 136/76 O2 Sat by Pulse 100 100 Oximetry 09/08/18 09/08/18 09/08/18 16:38 16:43 16:48 Temperature Pulse Rate 91 H 82 90 Respiratory Rate Blood Pressure O2 Sat by Pulse 99 97 96 Oximetry 09/08/18 09/08/18 09/08/18 16:53 16:58 17:03 Temperature Pulse Rate 78 79 94 H Respiratory Rate Blood Pressure 122/83 O2 Sat by Pulse 97 96 96 Oximetry 09/08/18 09/08/18 09/08/18 17:08 17:13 17:18 Temperature Pulse Rate 85 81 79 Respiratory Rate Blood Pressure O2 Sat by Pulse 96 96 97 Oximetry 09/08/18 09/08/18 09/08/18 17:23 17:28 17:32 Temperature Pulse Rate 84 82 88 Respiratory Rate Blood Pressure 132/63 O2 Sat by Pulse 96 96 Oximetry 0609/08/18 09/08/18 17:33 17:38 17:43 Temperature Pulse Rate 90 83 78 Respiratory Rate Blood Pressure O2 Sat by Pulse 98 100 100 Oximetry 09/08/18 09/08/18 09/08/18 17:48 17:53 17:58 Temperature Pulse Rate 84 84 80 Respiratory Rate Blood Pressure O2 Sat by Pulse 97 98 100 Oximetry 09/08/18 09/08/18 09/08/18 18:02 18:03 18:08 Temperature Pulse Rate 81 89 79 Respiratory Rate Blood Pressure 135/70 O2 Sat by Pulse 99 100 Oximetry 09/08/18 09/08/18 09/08/18 18:16 18:32 18:37 Temperature Pulse Rate 87 79 81 Respiratory Rate Blood Pressure 132/62 O2 Sat by Pulse 100 100 100 Oximetry 09/08/18 09/08/18 09/08/18 18:42 18:47 18:52 Temperature Pulse Rate 85 85 80 Respiratory Rate Blood Pressure O2 Sat by Pulse 100 100 100 Oximetry 09/08/18 09/08/18 09/08/18 18:57 19:02 19:03 Temperature Pulse Rate 83 77 Respiratory Rate Blood Pressure 139/67 O2 Sat by Pulse 100 90 88 Oximetry 09/08/18 09/08/18 09/08/18 19:07 19:09 19:23 Temperature Pulse Rate 80 86 84 Respiratory Rate Blood Pressure O2 Sat by Pulse 100 85 98 Oximetry 09/08/18 09/08/18 09/08/18 19:28 19:33 19:38 Temperature Pulse Rate 81 78 88 Respiratory Rate Blood Pressure 155/78 O2 Sat by Pulse 97 93 97 Oximetry 09/08/18 09/08/18 09/08/18 19:41 19:43 19:47 Temperature Pulse Rate 72 91 H 91 H Respiratory Rate Blood Pressure 143/68 O2 Sat by Pulse 81 L 99 Oximetry 09/08/18 09/08/18 09/08/18 19:48 19:49 19:51 Temperature Pulse Rate 82 82 96 H Respiratory Rate Blood Pressure 143/68 143/72 O2 Sat by Pulse 100 Oximetry 09/08/18 09/08/18 09/08/18 19:53 19:54 19:55 Temperature Pulse Rate 85 85 77 Respiratory Rate Blood Pressure 126/72 O2 Sat by Pulse 87 78 L Oximetry 09/08/18 09/08/18 09/08/18 19:57 19:58 19:59 Temperature Pulse Rate 77 86 90 Respiratory Rate Blood Pressure 129/65 126/57 O2 Sat by Pulse 70 L Oximetry 09/08/18 09/08/18 09/08/18 20:01 20:03 20:05 Temperature Pulse Rate 85 86 81 Respiratory Rate Blood Pressure 133/63 136/65 135/64 O2 Sat by Pulse 99 Oximetry 09/08/18 09/08/18 09/08/18 20:07 20:08 20:09 Temperature Pulse Rate 82 97 H 86 Respiratory Rate Blood Pressure 134/61 135/62 O2 Sat by Pulse 100 Oximetry 09/08/18 09/08/18 09/08/18 20:11 20:13 20:15 Temperature Pulse Rate 88 93 H 92 H Respiratory Rate Blood Pressure 142/65 141/63 146/65 O2 Sat by Pulse 97 Oximetry 09/08/18 09/08/18 09/08/18 20:17 20:18 20:19 Temperature Pulse Rate 89 102 H 84 Respiratory Rate Blood Pressure 149/65 148/66 O2 Sat by Pulse 99 Oximetry 09/08/18 09/08/18 09/08/18 20:21 20:23 20:25 Temperature Pulse Rate 81 96 H 87 Respiratory Rate Blood Pressure 149/57 148/65 151/67 O2 Sat by Pulse 90 Oximetry 09/08/18 09/08/18 09/08/18 20:27 20:28 20:29 Temperature Pulse Rate 78 83 73 Respiratory Rate Blood Pressure 141/63 144/63 O2 Sat by Pulse 98 Oximetry 09/08/18 09/08/18 09/08/18 20:31 20:33 20:34 Temperature Pulse Rate 89 86 77 Respiratory Rate Blood Pressure 142/69 145/64 O2 Sat by Pulse 79 L Oximetry 09/08/18 09/08/18 09/08/18 20:35 20:37 20:38 Temperature Pulse Rate 94 H 91 H 99 H Respiratory Rate Blood Pressure 118/63 121/63 O2 Sat by Pulse 100 Oximetry 09/08/18 09/08/18 09/08/18 20:39 20:42 20:43 Temperature Pulse Rate 105 H 91 H 95 H Respiratory Rate Blood Pressure 123/65 147/63 137/62 O2 Sat by Pulse 100 Oximetry 09/08/18 09/08/18 09/08/18 20:45 20:47 20:48 Temperature Pulse Rate 108 H 96 H 98 H Respiratory Rate Blood Pressure 128/62 132/64 O2 Sat by Pulse 100 Oximetry 09/08/18 09/08/18 09/08/18 20:49 20:51 20:54 Temperature Pulse Rate 99 H 94 H 103 H Respiratory Rate Blood Pressure 132/69 O2 Sat by Pulse 82 L 97 Oximetry 09/08/18 09/08/18 09/08/18 20:57 20:58 20:59 Temperature Pulse Rate 54 L 99 H 69 Respiratory Rate Blood Pressure 100/44 O2 Sat by Pulse 90 100 Oximetry 09/08/18 09/08/18 09/08/18 21:05 21:09 21:14 Temperature Pulse Rate 98 H 83 89 Respiratory Rate Blood Pressure 106/56 O2 Sat by Pulse 100 100 Oximetry 09/08/18 09/08/18 09/08/18 21:15 21:19 21:25 Temperature Pulse Rate 101 H 82 81 Respiratory Rate Blood Pressure 101/56 O2 Sat by Pulse 100 100 100 Oximetry 09/08/18 09/08/18 09/08/18 21:30 21:34 21:39 Temperature Pulse Rate 77 101 H 84 Respiratory Rate Blood Pressure 117/58 O2 Sat by Pulse 100 57 L 100 Oximetry 09/08/18 09/08/18 09/08/18 21:45 21:48 21:50 Temperature Pulse Rate 80 79 82 Respiratory Rate Blood Pressure 114/56 O2 Sat by Pulse 100 91 100 Oximetry 09/08/18 09/08/18 09/08/18 21:55 21:59 22:00 Temperature Pulse Rate 74 72 76 Respiratory Rate Blood Pressure 103/54 O2 Sat by Pulse 100 92 100 Oximetry 09/08/18 09/08/18 09/08/18 22:04 22:10 22:13 Temperature Pulse Rate 89 73 86 Respiratory Rate Blood Pressure 103/51 O2 Sat by Pulse 99 100 Oximetry 09/08/18 09/08/18 09/08/18 22:15 22:20 22:24 Temperature Pulse Rate 72 78 84 Respiratory Rate Blood Pressure O2 Sat by Pulse 100 100 100 Oximetry 09/08/18 09/08/18 09/08/18 22:29 22:30 22:35 Temperature Pulse Rate 76 84 68 Respiratory Rate Blood Pressure 106/57 O2 Sat by Pulse 82 L 100 Oximetry 09/08/18 09/08/18 09/08/18 22:40 22:41 22:44 Temperature Pulse Rate 83 74 87 Respiratory Rate Blood Pressure 89/55 O2 Sat by Pulse 100 90 Oximetry 09/08/18 09/08/18 09/08/18 22:45 22:50 22:55 Temperature Pulse Rate 89 99 H 74 Respiratory Rate Blood Pressure O2 Sat by Pulse 100 100 100 Oximetry 09/08/18 09/08/18 22:59 23:00 Temperature Pulse Rate 69 78 Respiratory Rate Blood Pressure 127/71 O2 Sat by Pulse 100 Oximetry - Exam FHR: category 1 Cervical Dilatation: 7.5 Cervical Effacement Percentage: 80 station: 0 Uterine Contraction Pattern: Regular Uterine Tone Measurement Phase: Resting Uterine Contraction Intensity: Moderate Extremities: normal - Labs Labs: Abnormal Labs 09/08/18 09:15 Hgb 9.3 L Hct 29.2 L MCV 70 L MCH 22 L RDW 18.5 H Laboratory Results - last 24 hr 09/08/18 09/08/18 09/08/18 09:15 09:15 09:15 WBC 9.2 RBC 4.18 Hgb 9.3 L Hct 29.2 L MCV 70 L MCH 22 L MCHC 32 RDW 18.5 H Plt Count 277 RPR Nonreactive Blood Type O POSITIVE Antibody Screen Negative
[2018-09-09] MEDS ORDERED: TUCKS PAD TP PRN (02:20)
[2018-09-09] MEDS ORDERED: DULCOLAX PR PRN (02:20)
[2018-09-09] MEDS ORDERED: ZOFRAN IV PRN (02:20)
[2018-09-09] MEDS ORDERED: MILK OF MAGNESIA PO PRN (02:20)
[2018-09-09] MEDS ORDERED: TYLENOL PO PRN (02:20)
[2018-09-09] MEDS ORDERED: BENADRYL PO PRN (02:20)
[2018-09-09] MEDS ORDERED: LANSINOH TP PRN (02:20)
--- NOTE | 2018-09-09 02:20 | Procedure Note ---
OB Delivery Note - Delivery Date of Delivery: 09/09/18 Surgeon: DAFNE HASSAN Estimated blood loss: other (450ml) - Vaginal Delivery presentation: vertex (nuchal arm reduced with delivery of head) Delivery position: OA Intrapartum events: mult. late decelerations (resolving with position change and oxygen), uterine atony (relieved with pitocin and uterine massage) Delivery induction: oxytocin Delivery augmentation: rupture of membranes, pitocin Delivery monitor: external FHT, external uterine, internal FHT, internal uterine Route of delivery: Delivery placenta: spontaneous (intact) Delivery cord: 3 umbilical vessels Episiotomy: midline (no extensions) Delivery laceration: 1st degree (periurethral) Delivery repair: vicryl (3-0) Anesthesia: epidural Delivery comments: Delivery as above was not complicated. Head and post shoulder and arm delivered w/o difficulty and rest of infant delivered. Infant placed on maternal abdomen. Cord clamping was delayed until pulsation no longer felt. Cord clamped x 2 and cut x1. Cord blood was collected. Placenta delivered intact. MLE repaired in usual fashion. and mother stable in LDR. EBL 450ml. Some uterine atony noted and relieved with pitocin and uterine massage. - Infant A at 1 minute: 7 at 5 minutes: 9 Infant Gender: Female (7lbs 11oz)
[2018-09-09] MEDS ORDERED: SODIUM CHLORIDE FLUSH SYRINGE 10 ML IV PRN (03:00)
[2018-09-09] MEDS: IBUPROFEN PO SCH ×4 (03:54→21:18)
[2018-09-09] MEDS ORDERED: METHERGINE PO SCH (06:00)
[2018-09-09 16:05] LABS: Hematocrit 24.3 % (30.3-42.9); Hemoglobin 7.7 gm/dl (10.1-14.3)
[2018-09-09] MEDS: COLACE PO SCH (21:18)
[2018-09-09] MEDS: FEOSOL PO SCH (21:18)
[2018-09-10] MEDS ORDERED: BOOSTRIX IM ONE (05:30)
[2018-09-10] MEDS: IBUPROFEN PO SCH ×4 (06:28→23:14)
[2018-09-10] MEDS ORDERED: DERMOPLAST TP PRN (10:05)
--- NOTE | 2018-09-10 10:18 | Discharge Summary ---
Providers - Providers Date of Admission: 09/08/18 08:31 Date of discharge: 09/10/18 (patient desires discharge today) Attending physician: DAFNE HASSAN Primary care physician: CORE CARRIER Hospitalization Reason for admission: post dates IOL Condition: Good Pertinent studies: post delivery H&H 7.7/24.3, pre-existing anemia on admission exacerbated by acute blood loss at delivery. pt is asymptomatic, Fe ordered Procedures: Hospital course: uneventful delivery and course Disposition: DC-01 TO HOME OR SELFCARE Core Measure Documentation - Palliative Care Palliative Care/ Comfort Measures: Not Applicable - Core Measures Any of the following diagnoses?: none Exam - Constitutional Vitals: Temp Pulse Resp BP Pulse Ox 97.9 F 74 20 114/77 98 09/10/18 08:15 09/10/18 08:15 09/10/18 08:15 09/10/18 08:15 09/10/18 01:21 General appearance: Present: no acute distress, well-nourished - EENT Eyes: Present: PERRL ENT: hearing intact, clear oral mucosa - Neck Neck: Present: supple, normal ROM - Respiratory Respiratory effort: normal Respiratory: bilateral: CTA - Cardiovascular Rhythm: regular Heart Sounds: Present: S1 & S2. Absent: rub, click - Extremities Extremities: pulses symmetrical, No edema Peripheral Pulses: within normal limits - Abdominal General gastrointestinal: Present: soft, non-tender, non-distended, normal bowel sounds Female genitourinary: Present: normal - Integumentary Integumentary: Present: clear, warm, dry - Musculoskeletal Musculoskeletal: gait normal, strength equal bilaterally - Psychiatric Psychiatric: appropriate mood/affect, intact judgment & insight - Neurologic Neurologic: CNII-XII intact, moves all extremities - Additional findings Additional findings: PPD1. Patient reports feeling well, denies any complaints or concers. FF, ML, U/2. vaginal bleeding is scant, patient denies any heavy bleeding or clots. She reports pain is well tolerated with medications. She reports breast feeding is going well, denies any breast complaints, reports infant is doing well. VSSAF. DWP post delivery labs, she denies any dizziness or feeling faint with ambulation or position changes. Encouraged increase in water intake. Patient desires discharge today. Will f/u in office in 4 weeks for ppv. Plan Activity: no restrictions Diet: regular Wound: open to air, keep clean and dry Follow up with: DAFNE HASSAN MD [Staff Physician] - 10/09/18 (Congratulations! Please call [phone] to schedule your appointment in 4 week. Call with any questions or concerns. ) Prescriptions: Docusate Sodium [Colace] 100 mg PO BID PRN #60 capsule PRN Reason: Constipation Ferrous Sulfate [Feosol 325 MG tab] 325 mg PO BID #60 tablet
[2018-09-10] MEDS: COLACE PO SCH ×2 (10:31→21:22)
[2018-09-10] MEDS: FEOSOL PO SCH ×2 (10:31→21:22)
[2018-09-11] MEDS: IBUPROFEN PO SCH (05:48)
[2018-09-11] MEDS: FEOSOL PO SCH (08:52)
[2018-09-11] MEDS: COLACE PO SCH (08:53)
[2018-09-11 10:19] VITALS: BP 126/83
== END 2018-09-11 16:35 | disposition home or self-care (01) | DRG 775 ==
LOC: LD 08:31 → OB 09-09 05:20
PROVIDERS: ADMIT Obstetrics & Gynecology; ATTEND Obstetrics & Gynecology
PROC: 10H07YZ Insertion of Other Device into Products of Conception, Via Natural or Artificial Opening (ICD-10-PCS; 2018-09-08)
PROC: 10907ZC Drainage of Amniotic Fluid, Therapeutic from Products of Conception, Via Natural or Artificial Opening (ICD-10-PCS; 2018-09-08)
PROC: 3E033VJ Introduction of Other Hormone into Peripheral Vein, Percutaneous Approach (ICD-10-PCS; 2018-09-08)
PROC: 10E0XZZ Delivery of Products of Conception, External Approach (ICD-10-PCS; principal; 2018-09-09)
PROC: 3E0R3BZ Introduction of Anesthetic Agent into Spinal Canal, Percutaneous Approach (ICD-10-PCS; 2018-09-09)
PROC: 00HU33Z Insertion of Infusion Device into Spinal Canal, Percutaneous Approach (ICD-10-PCS; 2018-09-09)
PROC: 0HQ9XZZ Repair Perineum Skin, External Approach (ICD-10-PCS; 2018-09-09)
PROC: 0W8NXZZ Division of Female Perineum, External Approach (ICD-10-PCS; 2018-09-09)
PROC: 3E0234Z Introduction of Serum, Toxoid and Vaccine into Muscle, Percutaneous Approach (ICD-10-PCS; 2018-09-10)
DX: O48.0 Post-term pregnancy (principal); Z3A.41 41 weeks gestation of pregnancy; Z37.0 Single live birth; Z23 Encounter for immunization; O76 Abnormality in fetal heart rate and rhythm complicating labor and delivery; O99.02 Anemia complicating childbirth; O69.89X0 Labor and delivery complicated by other cord complications, not applicable or unspecified; O71.82 Other specified trauma to perineum and vulva; O62.2 Other uterine inertia; D62 Acute posthemorrhagic anemia
CPT/HCPCS: 36415; 85014; 85018; 85027; 86592; 86850; 86900; 86901; 90471; 90715; G0378; A6250; J0595; J2590; J7120